=== PATIENT | male | born 1985 | race Caucasian/White ===

== ENCOUNTER 2021-04-10 21:29 | Observation (INO) | payer SELFPAY ==
--- NOTE | ~2021-04-10 | XR_ITS ---
XR chest 1V portable DATE: 04/10/2021 22:15 INDICATION: Shortness of breath TECHNIQUE: Portable AP chest on 04/07/2021 at 2202 hours COMPARISON: None FINDINGS: Mild infiltrate or atelectasis in the left lower lobe and to a lesser extent right lung bas e. The lungs otherwise appear clear. No pleural effusion or pulmonary vascular congestion or pneumoth orax. The cardiac images also through unremarkable. Included skeletal structures are unremarkable. IMPRESSION: Mild infiltrate or atelectasis at the lung bases, primarily on the left Reviewed, dictated and finalized at [facility].
--- NOTE | ~2021-04-10 | CT_ITS ---
EXAMINATION: CT abdomen pelvis w con DATE: 04/10/2021 23:11 INDICATION: Abdominal pain, nausea, vomiting TECHNIQUE: Computed tomography (CT) of the abdomen and pelvis was performed with 100 cc Omnipaque 350 intravenous contrast. Automated exposure control and iterative reconstruction technique were employe d. Exam dose: 389.48 mGy-cm total exam DLP. COMPARISON: None. FINDINGS: Middle lobe and right lower lobe calcified pulmonary granulomas. No infiltrate or consolida tion at the lung bases. Normal heart size. No pericardial or pleural effusion. The liver, gallbladder, bile ducts, spleen, pancreas and pancreatic duct, and adrenal glands and kidn eys are unremarkable. No urinary tract calculus or hydroureteronephrosis. Normal caliber of the abdominal aorta. No intraperitoneal or retroperitoneal or pelvic mass lesion or adenopathy or ascites. Normal appendix. No bowel obstruction, bowel wall thickening, pneumatosis or intraperitoneal free air . Small fat-containing umbilical hernia. Included skeletal structures are unremarkable. IMPRESSION: No significant abnormality abdomen or pelvis. Normal appendix. No bowel obstruction or free air Reviewed, dictated and finalized at [facility]. Reviewed, dictated and finalized at [facility].
[2021-04-10 21:30] VITALS: BP 141/81; PULSE 91; RESP 20; TEMP 36.6; O2SAT 97
[2021-04-10] MEDS: SODIUM CHLORIDE 0.9% IV 500 ML 999 ML IV CONT (21:56)
[2021-04-10] MEDS: ONDANSETRON INJ 4 MG/2 ML VIAL IV PUSH (21:57)
[2021-04-10] MEDS: PANTOPRAZOLE SODIUM IV 40 MG VIAL 80 MG IV PUSH (22:01)
[2021-04-10 22:18] LABS: Hematocrit 32.9 % (40.0-54.0); Hemoglobin 10.6 g/dL (14.0-18.0); Mean Corpuscular HGB Conc 32.2 g/dL (32.0-36.0); Mean Corpuscular Hemoglobin 32.4 pg (27.0-31.0); Mean Corpuscular Volume 100.6 fL (78.0-102.0); Mean Platelet Volume 9.8 fl (8.7-11.0); Platelet Count Result 313 K/mm3 (150-420); Red Blood Count 3.27 M/mm3 (4.70-6.10); Red Cell Distribution Width 14.7 % (11.6-14.4); White Blood Count 6.1 K/mm3 (4.8-10.8)
[2021-04-10 22:34] LABS: Alanine Aminotransferase 26 U/L (16-63); Albumin Level 3.5 g/dL (3.4-5.0); Alkaline Phosphatase 64 U/L (46-116); Anion Gap 11 mmol/L (8-16); Aspartate Amino Transferase 21 U/L (15-37); Bilirubin,Total 0.2 mg/dL (0.00-1.00); Blood Urea Nitrogen 7 mg/dL (7-18); Calcium 7.8 mg/dL (8.5-10.1); Carbon Dioxide 25 mmol/L (21-32); Chloride 109 mmol/L (98-108); Estimated CRCL calculation 136 ml/min; Estimated Glomerular Filt Rate > 60; Glucose 91 mg/dL (70-99); Lipase 234 U/L (73-393); Osmolality Calculated 298 mOsm/kg (285-295); Potassium 3.7 mmol/L (3.5-5.1); Sodium 145 mmol/L (136-145); Total Protein 6.8 g/dL (6.4-8.2)
[2021-04-10 22:39] LABS: Lactic Acid Reflex 1.8 mmol/L (0.4-2.0)
[2021-04-10] MEDS: MORPHINE SULFATE (*CRX) 4 MG/ML INJ IV PUSH (22:39)
[2021-04-10 22:51] LABS: Band Neutrophils Percent 0 % (0-6); Basophils Absolute Manual 0.18 K/mm3 (0-0.1); Basophils Percent Manual 3 % (0-1); Eosinophils Absolute Manual 0.12 K/mm3 (0.02-0.5); Eosinophils Percent Manual 2 % (1-6); Lymphocytes Percent Manual 41 % (18-44); Monocytes Absolute Manual 0.48 K/mm3 (0.1-0.90); Monocytes Percent Manual 8 % (3-9); Neutrophils Percent Manual 46 % (46-73); Platelet Estimate Adequate (Adequate); Total Cells Counted 100
--- NOTE | 2021-04-10 23:26 | ED.NAVMDI ---
HPI - Nausea/Vomiting/Diarrhea General Chief complaint: Nausea/Vomiting/Diarrhea Stated complaint: AMB Source: patient and EMS Mode of arrival: EMS Limitations: no limitations History of Present Illness HPI Narrative: this is a 35-year-old gentleman that apparently EMS was called because of severe epigastric burning with nausea and had episodes of nausea with vomiting, with no fever chills no diarrhea or constipation no flank pain patient has a history of GERD and has been out of his Nexium for the last 2 to 3 weeks. 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 Patient has been using alcohol and edible marijuana. MD elicited complaint: nausea and abdominal pain Pertinent past history: cyclical vomiting Onset (ago): week(s) Associated nausea: Yes Associated abdominal pain: Yes Location of pain: epigastric Radiation: epigastric Pain consistency: constant Severity: severe Pain scale (0-10): 1 Quality: other ( burning) Related Data Home Medications Medication Instructions Recorded Confirmed esomeprazole magnesium [Nexium] 40 mg PO DAILY 04/10/21 04/10/21 Allergies Allergy/AdvReac Type Severity Reaction Status Date / Time No Known Allergies Allergy Verified 04/10/21 21:39 Review of Systems Review of Systems: All systems reviewed & are unremarkable except as noted in HPI and below PMFSH Past Medical History Medical History GERD (gastroesophageal reflux disease) Exam Const: General: no acute distress Orientation/consciousness: patient oriented x3 HENMT: Head: normal to inspection Eyes: Pupils: Equal, round and reactive pupils present EOM: EOMs intact bilaterally Neck: Neck: normal visual inspection and no lymphadenopathy Chest: Chest palpation & inspection: normal inspection of the chest Resp: Effort & Inspection: normal respiratory effort Auscultation: clear to auscultation bilaterally Cardio: Rate: regular rate Rhythm: regular rhythm GI: GI Palp: Yes Soft to palpation and Yes Tenderness to palpation present (GI) : Testes: Testes normal Skin: General skin exam: normal color Rashes: no rashes Neuro: General: patient oriented x3, moves all extremities and no meningeal signs Extrem: General: normal to inspection and no pedal edema Psych: Mental Status: mental status grossly normal Course Course Emergency Course: reassessment patient, is more comfortable but continues to state that he is having some epigastric pain currently there is no nausea vomiting no fever chills labs and CT scan findings were reviewed with patient. Vital Signs Vital signs: Vital Signs Temperature 36.6 C 04/10/21 21:30 Pulse Rate 91 04/10/21 21:30 Respiratory Rate 20 04/10/21 21:30 Blood Pressure 141/81 H 04/10/21 21:30 Pulse Oximetry 97 04/10/21 21:30 Temperature 36.6 C 04/10/21 21:30 Pulse Rate 91 04/10/21 21:30 Respiratory Rate 20 04/10/21 21:30 Blood Pressure 141/81 H 04/10/21 21:30 Pulse Oximetry 97 04/10/21 21:30 MDM - Nausea/Vomiting/Diarrhea Lab Data Result diagrams: 04/10/21 22:14 04/10/21 22:14 Labs: Lab Results 04/10/21 04/10/21 04/10/21 Range/Units 22:14 22:14 22:14 WBC 6.1 (4.8-10.8) K/mm3 RBC 3.27 L (4.70-6.10) M/mm3 Hgb 10.6 L (14.0-18.0) g/dL Hct 32.9 L (40.0-54.0) % MCV 100.6 (78.0-102.0) fL MCH 32.4 H (27.0-31.0) pg MCHC 32.2 (32.0-36.0) g/dL RDW 14.7 H (11.6-14.4) % Plt Count 313 (150-420) K/mm3 MPV 9.8 (8.7-11.0) fl Immature Gran % (Auto) Not Reportable Neut % (Auto) Not Reportable Lymph % (Auto) Not Reportable [place] % (Auto) Not Reportable Eos % (Auto) Not Reportable Baso % (Auto) Not Reportable Lymph # (Auto) Not Reportable [place] # (Auto) Not Reportable Eos # (Auto) Not Reportable Baso # (Auto) Not Reportable
[2021-04-10 23:38] VITALS: BP 110/70; PULSE 74; RESP 20; TEMP 36.6; O2SAT 100
[2021-04-11] VITALS: BP 110/58; PULSE 71; RESP 20; TEMP 36.5; O2SAT 95
[2021-04-11 00:12] LABS: Ethanol 103 mg/dL (0-6)
--- NOTE | 2021-04-11 00:28 | PC.NURSE ---
Patient admitted to room 202 per stretcher from the ER. Patient is sleeping and will not answer questions. IV fluids per orders and call light in reach.
[2021-04-11 00:29] VITALS: BMI 31.1
[2021-04-11] MEDS: SODIUM CHLORIDE 0.9% IV 1,000 ML 100 ML IV CONT (03:35)
[2021-04-11 05:16] LABS: Basophils Absolute Auto 0.09 K/mm3 (0.00-0.10); Basophils Percent Auto 1.3 % (0.0-1.0); Eosinophils Absolute Auto 0.25 K/mm3 (0.02-0.50); Eosinophils Percent Auto 3.6 % (1.0-6.0); Hematocrit 35.5 % (40.0-54.0); Hemoglobin 11.1 g/dL (14.0-18.0); Immature Granulocyte Absolute 0.02 K/mm3 (0.00-0.00); Immature Granulocyte Percent A 0.3 % (0.0-0.0); Lymphocytes Absolute Auto 2.87 K/mm3 (1.10-4.50); Lymphocytes Percent Auto 41.1 % (18.0-42.0); Mean Corpuscular HGB Conc 31.3 g/dL (32.0-36.0); Mean Corpuscular Hemoglobin 31.6 pg (27.0-31.0); Mean Corpuscular Volume 101.1 fL (78.0-102.0); Mean Platelet Volume 10.2 fl (8.7-11.0); Monocytes Absolute Auto 0.73 K/mm3 (0.10-0.90); Monocytes Percent Auto 10.4 % (2.0-11.0); Neutrophils Percent Auto 43.3 % (50.0-70.0); Platelet Count Result 325 K/mm3 (150-420); Red Blood Count 3.51 M/mm3 (4.70-6.10); Red Cell Distribution Width 14.9 % (11.6-14.4)
[2021-04-11 05:33] LABS: Alanine Aminotransferase 26 U/L (16-63); Albumin Level 3.2 g/dL (3.4-5.0); Alkaline Phosphatase 61 U/L (46-116); Anion Gap 7 mmol/L (8-16); Aspartate Amino Transferase 22 U/L (15-37); Bilirubin,Total 0.2 mg/dL (0.00-1.00); Blood Urea Nitrogen 7 mg/dL (7-18); Carbon Dioxide 28 mmol/L (21-32); Chloride 111 mmol/L (98-108); Estimated CRCL calculation 137 ml/min; Estimated Glomerular Filt Rate > 60; Glucose 87 mg/dL (70-99); Osmolality Calculated 299 mOsm/kg (285-295); Potassium 4.4 mmol/L (3.5-5.1); Sodium 146 mmol/L (136-145); Total Protein 6.4 g/dL (6.4-8.2)
[2021-04-11 07:25] VITALS: BP 130/90; PULSE 66; RESP 18; TEMP 37.3; O2SAT 96
--- NOTE | 2021-04-11 07:34 | PM.SD2 ---
Same Day Admit/Disch: HPI History of Present Illness Chief complaint: ABDOMINAL PAIN Narrative: Jose Up is a 35 year old male that presented to our ED with nausea vomiting and epigastric pain. Patient has a past medical history of GERD, he has not taken his medication for some time now due to not having a prescription. He does live out of town and is here for work. According to patient he did have edible marijuana which he does not do often and has consume alcoholic beverages day of admission. The patient denies SOB, CP, palpitation, extremity numbness, lightheadedness, dizziness, constipation, diarrhea, chills, or fever. Patient does continue to complain of epigastric tenderness possibly secondary to nausea and vomiting. It does appear that he is experiencing veisalga.vital signs 130/90, 66, 18, 99.2, 96 on room air, WBC 7.0, hemoglobin 11.1, hematocrit 35.5, platelets 325, sodium 146, potassium 4.4, anion gap 7, BUN 7, creatinine 0.77, glucose 87 lactic acid 1.8, liver function test within normal limits, lipase 234, alcohol 103, CT of the abdomen unremarkable. Time spent 60 minutes Observation Disposition: Home [facility] Past Medical History Medical History GERD (gastroesophageal reflux disease) Social History Social History Alcohol intake: current Substance use type: marijuana Gender identity (if verbalized by the patient): Male Spiritual care concerns: No Same Day Admit/Disch: Med Pre-admit Medications Home Medications Medication Instructions Recorded Confirmed Type esomeprazole magnesium [Nexium] 40 mg PO DAILY #90 cap 04/11/21 Rx ondansetron HCl [Zofran] 4 mg PO Q6H PRN #60 tablet 04/11/21 Rx Exam Narrative: GENERAL: This is a well-nourished, well-developed patient, in no apparent distress. HEAD: normocephalic, atraumatic. EYES: PERRL. Sclera clear/white. Vision is grossly intact. EARS: External ears normal, auditory canals clear and without drainage, TMs normal without perforation. Hearing grossly intact. NOSE: External nose normal with no obvious nasal discharge, nares without redness, no rhinorrhea. THROAT: Mucous membranes moist, posterior pharynx clear. NECK: Neck supple, non-tender without lymphadenopathy, masses or thyromegaly. CARDIOVASCULAR: Regular rate and rhythm without murmurs, gallops, or rubs. RESPIRATORY: Clear to auscultation. Breath sounds equal bilaterally. No wheezes, rales, or rhonchi. GASTROINTESTINAL: Abdomen soft, epigastric tenderness, nondistended. Bowel sounds are active. No hepato-splenomegaly, or palpable masses. No guarding. SKIN: warm, intact with no suspicious lesions or rash, good texture and turgor. NEURO: awake, alert, and oriented to person, place and time. There were no obvious focal neurologic abnormalities. Steady gait EXTREMITIES: Normal range of motion. No edema. No calf tenderness. Negative Homans sign bilaterally. BACK: Nontender without deformity or crepitance. No flank tenderness. DS: Data Data Completed and Pending Labs on day of discharge: Labs from last 24 hours 04/11/21 04/11/21 04/11/21 05:02 05:00 05:00 WBC 7.0 RBC 3.51 L Hgb 11.1 L Hct 35.5 L MCV 101.1 MCH 31.6 H MCHC 31.3 L RDW 14.9 H Plt Count 325 MPV 10.2 Immature Gran % (Auto) 0.3 H Neut % (Auto) 43.3 L Lymph % (Auto) 41.1 [place] % (Auto) 10.4 Eos % (Auto) 3.6 Baso % (Auto) 1.3 H Lymph # (Auto) 2.87 [place] # (Auto) 0.73 Eos # (Auto) 0.25 Baso # (Auto) 0.09 Abs Immat Gran (auto) 0.02 H Absolute Neuts (auto) 3.0 Absolute Nucleated RBC 0.00 Total Counted Neutrophils % (Manual) Band Neutrophils % Lymphocytes % (Manual) Monocytes % (Manual) Eosinophils % (Manual) Basophils % (Manual) Nucleated RBC % 0.0 Abs Neuts (Manual) Abs Lymphs (Manual) Abs Monocytes (Manual) Ab
[2021-04-11 07:55] LABS: Ethanol < 3 mg/dL (0-6)
[2021-04-11] MEDS: PANTOPRAZOLE SODIUM IV 40 MG VIAL IV PUSH (08:50)
--- NOTE | 2021-04-11 13:15 | PC.NURSE ---
Patient discharge home. All discharge instructions and education reviewed with patient, patient stated understanding. All belongings gathered together and sent home with patient. IV site removed, tip intact. Dressing applied to site. Denies any questions at this time. Provided with call back information. This nurse accompanied patient to front door, pt walked independently. Transport car picked patient up.
== END 2021-04-11 13:15 | disposition home or self-care (01) ==
LOC: CHSED 23:31 → CHS2ND 04-11 06:50
PROVIDERS: Nurse Practitioner; Admitting Provider Emergency Medicine; Emergency Provider Emergency Medicine; Visit Provider Emergency Medicine
DX: K21.00 Gastro-esophageal reflux disease with esophagitis, without bleeding (principal); R11.2 Nausea with vomiting, unspecified; F12.90 Cannabis use, unspecified, uncomplicated; Z72.89 Other problems related to lifestyle; K21.9 Gastro-esophageal reflux disease without esophagitis
CPT/HCPCS: 36415; 71045; 74177; 80053; 80307; 83605; 83690; 85025; 96361; 96374; 96375; 99285; C9113; G0378; G0379; J2270; J2405; J7030; J7040; Q9967